=== PATIENT | male | born 1980 | race American Indian/Alaskan Native ===

== ENCOUNTER 2018-05-26 10:55 | Emergency (ER) | payer SELFPAY ==
[2018-05-26 11:09] VITALS: BP 131/90
[2018-05-26] MEDS ORDERED: NORCO 5/325 PO ONE (12:07)
[2018-05-26] MEDS ORDERED: TRIMOX PO ONE (12:07)
--- NOTE | 2018-05-26 12:07 | Emergency Department Report ---
ED ENT HPI - General Chief complaint: Dental/Oral Stated complaint: DENTAL ABSCESS Time Seen by Provider: 05/26/18 12:00 Source: patient Mode of arrival: Ambulatory Limitations: No Limitations - History of Present Illness Initial comments: This is a 38-year-old -[place] male who presents with toothache and swelling for several months. He states he does not have insurance to follow up with the dizziness. Patient reports shortly after having tooth pulled 2 years ago. He incurred a dry socket and had problems ever since. She reports pain as 10 out of 10 on pain scale. There is swelling and pain around the left lower area. He denies fever, drainage, numbness or tingling, difficulty swallowing, or drooling. MD complaint: tooth pain Onset/Timin -: month(s) Location: tooth # (#20) 1 - dental pain to gums, dark swollen area Severity: severe Severity scale (0 -10): 10 Quality: aching, other (throbbing) Consistency: constant Improves with: none Worsens with: eating Context- Dental: history of dental caries, poor dental care Associated Symptoms: gum swelling, toothache. denies: fever, cough, pain with swallowing, sore throat, tinnitus, hearing loss, discharge from ear, rhinorrhea - Related Data Previous Rx's Medication Instructions Recorded Last Taken Type Clindamycin [Clindamycin CAP] 300 mg PO Q8H #12 cap 05/26/18 Unknown Rx Naproxen [Naprosyn] 500 mg PO TID #21 tablet 05/26/18 Unknown Rx traMADol [Ultram 50 MG tab] 50 mg PO Q6HR PRN #8 tablet 05/26/18 Unknown Rx Allergies Allergy/AdvReac Type Severity Reaction Status Date / Time No Known Allergies Allergy Unverified 05/26/18 11:08 ED Dental HPI - General Chief complaint: Dental/Oral Stated complaint: DENTAL ABSCESS Time Seen by Provider: 05/26/18 12:00 Source: patient Mode of arrival: Ambulatory Limitations: No Limitations - Related Data Previous Rx's Medication Instructions Recorded Last Taken Type Clindamycin [Clindamycin CAP] 300 mg PO Q8H #12 cap 05/26/18 Unknown Rx Naproxen [Naprosyn] 500 mg PO TID #21 tablet 05/26/18 Unknown Rx traMADol [Ultram 50 MG tab] 50 mg PO Q6HR PRN #8 tablet 05/26/18 Unknown Rx Allergies Allergy/AdvReac Type Severity Reaction Status Date / Time No Known Allergies Allergy Unverified 05/26/18 11:08 ED Review of Systems ROS: Stated complaint: DENTAL ABSCESS Other details as noted in HPI Constitutional: denies: chills, fever ENT: dental pain. denies: ear pain, throat pain Respiratory: denies: cough, shortness of breath, wheezing Cardiovascular: denies: chest pain, palpitations Gastrointestinal: denies: abdominal pain, nausea, diarrhea Neurological: denies: headache, weakness, paresthesias Psychiatric: denies: anxiety, depression ED Past Medical Hx - Past Medical History Previous Medical History?: No - Surgical History Past Surgical History?: No - Social History Smoking Status: Current Every Day Smoker Substance Use Type: None - Medications Home Medications: Home Medications Medication Instructions Recorded Confirmed Last Taken Type Clindamycin [Clindamycin CAP] 300 mg PO Q8H #12 cap 05/26/18 Unknown Rx Naproxen [Naprosyn] 500 mg PO TID #21 tablet 05/26/18 Unknown Rx traMADol [Ultram 50 MG tab] 50 mg PO Q6HR PRN #8 tablet 05/26/18 Unknown Rx ED Physical Exam - General Limitations: No Limitations General appearance: alert, in no apparent distress - ENT ENT exam: Present: mucous membranes moist, other (mucosal swelling around #20, dark swollen area, tenderness) - Neck Neck exam: Present: normal inspection. Absent: lymphadenopathy - Respiratory Respiratory exam: Present: normal lung sounds bilaterally. Absent: respiratory distress - Cardiovascular Cardiovascular Exam: Present: regular rate, normal rhythm. Absent: systolic murmur, diastolic murmur, rubs, gallop - GI/Abdominal GI/Abdominal exam: Present: soft, normal bowel sounds - Neurological Exam Neurological exam: Present: alert, oriented X3 - Psychiatric Psychiatric exam: Present: normal affect, normal mood - Skin Skin exam: Present: warm, dry, intact, normal color. Absent: rash ED Course Vital Signs 05/26/18 05/26/18 11:07 12:37 Temperature 98.5 F Pulse Rate 110 H 69 Respiratory 16 18 Rate Blood Pressure 131/90 O2 Sat by Pulse 98 99 Oximetry ED Medical Decision Making - Medical Decision Making This is a 38-year-old male that presents with toothache to the left lower side # 20 for 2 months. Patient is stable and was examined by me. Given norco and amoxicillin once in ER. Susceptible of dental abscess and toothache. Discussed plan with patient. He agreed with ER plan. Discharged home with clindamycin, naproxen, and tramadol. Follow up with dentist for continuous care. Critical care attestation.: If time is entered above; I have spent that time in minutes in the direct care of this critically ill patient, excluding procedure time. ED Disposition Clinical Impression: Dental caries, Dental abscess Disposition: TO HOME OR SELFCARE Is pt being admited?: No Does the pt Need Aspirin: No Condition: Stable Instructions: Dental Abscess (ED), Dental Caries (ED) Additional Instructions: Complete all days of clindamycin as prescribed for 7 days. Avoid drinking alcohol while taking antibiotics and for up to 24 hours after completion. Follow up with Dentist in 24-72 hours. Prescriptions: Clindamycin [Clindamycin CAP] 300 mg PO Q8H #12 cap Naproxen [Naprosyn] 500 mg PO TID #21 tablet traMADol [Ultram 50 MG tab] 50 mg PO Q6HR PRN #8 tablet PRN Reason: Pain Referrals: [facility] [Outside] - 3-5 Days [facility] [Outside] - 3-5 Days [facility] [Outside] - 3-5 Days [facility] [Outside] - 3-5 Days Forms: Work/School Release Form(ED) Time of Disposition: 12:25
== END 2018-05-26 13:03 | disposition home or self-care (01) ==
LOC: EDBD 10:55 → ED 10:55
DX: K02.9 Dental caries, unspecified (principal); K04.7 Periapical abscess without sinus; F17.200 Nicotine dependence, unspecified, uncomplicated
CPT/HCPCS: 99282